=== PATIENT | female | born 1975 | race Caucasian/White ===

== ENCOUNTER 2019-05-12 18:20 | Inpatient (IN) ==
[2019-05-12] MEDS ORDERED: Ondansetron 4 MG/2 ML VIAL IVP ONE (19:22)
[2019-05-12] MEDS ORDERED: *HR* FentaNYL (PF) 100 MCG/2 ML VIAL IVP ONE (19:22)
[2019-05-12 19:31] LABS: Basophils % 0.3 %; Eosinophils % 0.1 %; Hematocrit 38.6 % (35.3-44.9); Immature Granulocytes % 0.4 % (0-4); Lymphocytes # 0.8 K/mcL (0.6-4.6); Lymphocytes % 5.9 %; Mean Corpuscular HGB Conc 33.7 g/dL (31.6-35.5); Mean Corpuscular Hemoglobin 30.6 pg (28.0-33.3); Mean Corpuscular Volume 90.8 fL (83.0-100.0); Mean Platelet Volume 8.7 fL (9.4-12.4); Monocytes # 0.5 K/mcL (0.0-1.3); Monocytes % 3.9 %; Platelet Count 259 K/mcL (140-400); Red Blood Count 4.25 M/mcL (3.82-4.97); Red Cell Distribution Width 12.5 % (11.5-14.5); Segmented Neutrophils % 89.4 %; White Blood Count 13.4 K/mcL (4.3-11.1)
[2019-05-12 19:48] LABS: Bilirubin,Urine Negative (Negative); Blood,Urine Negative (Negative); Color,Urine Yellow (Yellow); Glucose,Urine (UA) Normal (Normal); Ketones,Urine 80 mg/dL (Negative); Leukocyte Esterase,Urine Negative (Negative); Nitrite,Urine Negative (Negative); PH,Urine 8.5 pH Units (5.0-8.0); Protein,Urine Trace mg/dL (Neg-Trace); Specific Gravity,Urine 1.024 (1.010-1.025); Urobilinogen,Urine Normal (Normal)
[2019-05-12 19:51] LABS: Bacteria,Urine None Seen per hpf (None-Few); Hyaline Casts,Urine None Seen per lpf (None-Few); Squamous Epithelial Cell,Urine Many per lpf (None-Few)
[2019-05-12 19:52] LABS: Clarity,Urine Hazy (Clear)
[2019-05-12 19:54] LABS: Alanine Aminotransferase 14 Units/L (7-52); Albumin 4.1 g/dL (3.5-5.7); Albumin/Globulin Ratio 1.4 (1.1-2.2); Alkaline Phosphatase 57 Units/L (34-104); Aspartate Amino Transferase 13 Units/L (13-39); BUN/Creatinine Ratio 14 (6-26); Bilirubin,Direct 0.1 mg/dL (0.0-0.2); Bilirubin,Indirect 0.6 mg/dL (0.0-1.2); Bilirubin,Total 0.7 mg/dL (0.3-1.0); Blood Urea Nitrogen 12 mg/dL (6-20); Calcium 9.4 mg/dL (8.6-10.3); Carbon Dioxide 23 mEq/L (23-29); Chloride 104 mEq/L (98-107); Globulin 2.9 g/dL (2.4-3.5); Glucose 127 mg/dL (70-105); Lipase 123 Units/L (11-82); Osmolality,Calculated 285 (280-300); Potassium 3.5 mEq/L (3.5-5.1); Sodium 137 mEq/L (136-145); eGFR For African Americans > 60 (> 60); eGFR For Non-African Americans > 60 (> 60)
--- NOTE | 2019-05-12 21:09 | Emergency Department Note ---
Disposition Clinical Impression: Pancreatitis Qualifiers: Chronicity: acute Pancreatitis type: unspecified pancreatitis type Acute pancreatitis complication: no infection or necrosis Qualified Code(s): K85.90 - Acute pancreatitis without necrosis or infection, unspecified Disposition: Admitted As Inpatient Condition: Good Referrals: Emiliana Carmona [employer] OPERATOR [Primary Care Provider] - Forms: ED Satisfaction Letter, Work/School Release Time of Disposition: 22:19 General Adult HPI - General Chief complaint: ED Abdominal Pain Stated complaint: abd pain Time Seen by Provider: 05/12/19 18:26 Source: patient Limitations: no limitations Nursing Notes Reviewed: Yes Vital Signs Reviewed: Yes - History of Present Illness HPI Narrative: Female patient with a history of cholecystectomy and uterine fibroids presenting to the emergency department with a three-day history of epigastric pain that is been getting significantly worse. Also nausea and vomiting. She denies any hematemesis or trouble stooling. She denies any melena or hematochezia. She denies any fevers at home. No provoking or alleviating factors. Pain Scale: 8 - Related Data Home Medications Medication Instructions Recorded Confirmed Tamoxifen [Nolvadex] 20 mg PO DAILY 05/12/19 05/12/19 Allergies Allergy/AdvReac Type Severity Reaction Status Date / Time No Known Allergies Allergy Verified 04/25/19 08:25 All systems ED: reviewed and negative except as stated. Review of Systems: As Per HPI Constitutional: Denies: fever, chills Cardiovascular: Denies: chest pain, syncope Respiratory: Denies: cough, dyspnea Gastrointestinal: Reports: abdominal pain, nausea, vomiting. Denies: diarrhea, constipation, hematemesis, melena, hematochezia Genitourinary: Denies: urgency, dysuria, frequency Musculoskeletal: Denies: back pain, neck pain Integumentary: Denies: rash Neurological: Denies: headache, weakness Past Medical History - Past Medical History Attestation: Yes The following information was validated with the patient. Source: patient Medical history: Reports: cancer Psychiatric history: Reports: no psych history - Social History Smoking Status: Never smoker Smokeless Tobacco Status: No Alcohol use: Reports: none Drug use: Reports: none Physical Exam - General Limitations: no limitations General appearance: alert, in distress (Appears in pain ) - Head Head exam: atraumatic, normocephalic, normal inspection - Eye Eye exam: Present: normal appearance, PERRL, EOMI - ENT ENT exam: normal exam, normal oropharynx, mucous membranes moist - Neck Neck exam: Present: normal inspection, full ROM, trachea midline - Chest Chest inspection: Present: normal inspection, symmetric chest wall rise - Respiratory Respiratory exam: Present: normal lung sounds bilaterally. Absent: respiratory distress, accessory muscle use - Cardiovascular Cardiovascular exam: Present: regular rate, normal rhythm, normal heart sounds - Abdominal Exam Abdominal exam: Present: soft, tenderness (Epigastric region), guarding (Epigastric area). Absent: distention, rebound - Extremities Exam Extremities exam: Present: normal inspection, full ROM, normal capillary refill. Absent: tenderness, pedal edema, calf tenderness - Back Exam Back exam: Present: normal inspection, full ROM. Absent: tenderness - Neurological Exam Neurological exam: Present: alert, oriented X3 - Psychiatric Psychiatric exam: Present: normal affect, normal mood - Skin Skin exam: Present: warm, dry, intact, normal color. Absent: rash, cyanosis, diaphoresis Course Course Narrative: Patient uncomfortable in bed. Does have some epigastric tenderness. Nausea and vomiting. Holding an emesis bag. Stable vitals. We will provide patient with pain medication and anti-medics and get a CT of patient's abdomen secondary to her tenderness. She does have a history of uterine fibroids as well as a cholecystectomy. Does have some mild right lower quadrant tenderness however the most of her tenderness is over the epigastric region. - Reevaluation(s) Reevaluation #1: Patient with pancreatitis. We will provide patient with more pain medication an d she is still in pain. She does have a mildly elevated lipase however she was noted on the CT. 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 No history of pancreatitis before for her. No leukocytosis. Patient otherwise appears well just uncomfortable. Abdomen is soft nondistended and not rigid or scaphoid. No organomegaly noted. No swelling to extremities. - Consultations Consultation #1: Dr Hernandez accepted Pt in stable condition. Time: 22:19 Vital Signs Temperature 97.7 F 05/12/19 18:21 Pulse Rate 86 05/12/19 18:21 Respiratory Rate 16 05/12/19 18:21 Blood Pressure 134/85 05/12/19 18:21 O2 Sat by Pulse Oximetry 98 05/12/19 18:21 Temperature 97.7 F 05/12/19 18:41 Pulse Rate 72 05/12/19 21:23 Respiratory Rate 14 05/12/19 21:23 Blood Pressure 111/76 05/12/19 21:23 O2 Sat by Pulse Oximetry 100 05/12/19 21:23 Oxygen Delivery Oxygen Delivery Room Air Medical Decision Making - Medical Records Medical records reviewed: Yes I reviewed the patient's medical records. - Lab Data Lab results reviewed: Yes I reviewed the patient's lab results. Result diagrams: 05/12/19 19:18 05/12/19 19:18 Lab Results 05/12/19 05/12/19 05/12/19 Range/Units 19:18 19:18 19:18 WBC 13.4 H (4.3-11.1) K/mcL RBC 4.25 (3.82-4.97) M/mcL Hgb 13.0 (11.5-15.4) g/dL Hct 38.6 (35.3-44.9) % MCV 90.8 (83.0-100.0) fL MCH 30.6 (28.0-33.3) pg MCHC 33.7 (31.6-35.5) g/dL RDW 12.5 (11.5-14.5) % Plt Count 259 (140-400) K/mcL MPV 8.7 L (9.4-12.4) fL Immature Gran % 0.4 (0-4) % Seg Neutrophils % 89.4 % Lymphocytes % 5.9 % Monocytes % 3.9 % Eosinophils % 0.1 % Basophils % 0.3 % Neutrophils # 12.0 H (1.6-8.9) K/mcL Lymphocytes # 0.8 (0.6-4.6) K/mcL Monocytes # 0.5 (0.0-1.3) K/mcL Eosinophils # 0.0 (0.0-0.6) K/mcL Basophils # 0.0 (0.0-0.2) K/mcL Sodium 137 (136-145) mEq/L Potassium 3.5 (3.5-5.1) mEq/L Chloride 104 (98-107) mEq/L Carbon Dioxide 23 (23-29) mEq/L BUN 12 (6-20) mg/dL Creatinine 0.87 (0.60-1.20) mg/dL Est GFR ( Amer) > 60 (> 60) Est GFR (Non-Af Amer) > 60 (> 60) BUN/Creatinine Ratio 14 (6-26) Glucose 127 H (70-105) mg/dL Calculated Osmolality 285 (280-300) Lactic Acid 1.7 (0.5-2.2) mmol/L Calcium 9.4 (8.6-10.3) mg/dL Total Bilirubin 0.7 (0.3-1.0) mg/dL Direct Bilirubin 0.1 (0.0-0.2) mg/dL Indirect Bilirubin 0.6 (0.0-1.2) mg/dL AST 13 (13-39) Units/L ALT 14 (7-52) Units/L Alkaline Phosphatase 57 (34-104) Units/L Serum Total Protein 7.0 (6.4-8.9) g/dL Albumin 4.1 (3.5-5.7) g/dL Globulin 2.9 (2.4-3.5) g/dL Albumin/Globulin Ratio 1.4 (1.1-2.2) Lipase 123 H (11-82) Units/L Urine Color (Yellow) Urine Clarity (Clear) Urine pH (5.0-8.0) pH Units Ur Specific [place] (1.010-1.025) Urine Protein (Neg-Trace) mg/dL Urine Glucose (UA) (Normal) mg/dL Urine Ketones (Negative) mg/dL Urine Blood (Negative) Urine Nitrite (Negative) Urine Bilirubin (Negative) Urine Urobilinogen (Normal) mg/dL Ur Leukocyte Esterase (Negative) Urine Microscopic RBC (0-3) per hpf Ur Squamous Epith Cells (None-Few) per lpf Urine Bacteria (None-Few) per hpf Hyaline Casts (None-Few) per lpf Ur Culture Indicated? (NO) 05/12/19 Range/Units 19:38 WBC (4.3-11.1) K/mcL RBC (3.82-4.97) M/mcL Hgb (11.5-15.4) g/dL Hct (35.3-44.9) % MCV (83.0-100.0) fL MCH (28.0-33.3) pg MCHC (31.6-35.5) g/dL RDW (11.5-14.5) % Plt Count (140-400) K/mcL MPV (9.4-12.4) fL Immature Gran % (0-4) % Seg Neutrophils % % Lymphocytes % % Monocytes % % Eosinophils % % Basophils % % Neutrophils # (1.6-8.9) K/mcL Lymphocytes # (0.6-4.6) K/mcL Monocytes # (0.0-1.3) K/mcL Eosinophils # (0.0-0.6) K/mcL Basophils # (0.0-0.2) K/mcL Sodium (136-145) mEq/L Potassium (3.5-5.1) mEq/L Chloride (98-107) mEq/L Carbon Dioxide (23-29) mEq/L BUN (6-20) mg/dL Creatinine (0.60-1.20) mg/dL Est GFR ( Amer) (> 60) Est GFR (Non-Af Amer) (> 60) BUN/Creatinine Ratio (6-26) Glucose (70-105) mg/dL Calculated Osmolality (280-300) Lactic Acid (0.5-2.2) mmol/L Calcium (8.6-10.3) mg/dL Total Bilirubin (0.3-1.0) mg/dL Direct Bilirubin (0.0-0.2) mg/dL Indirect Bilirubin (0.0-1.2) mg/dL AST (13-39) Units/L ALT (7-52) Units/L Alkaline Phosphatase (34-104) Units/L Serum Total Protein (6.4-8.9) g/dL Albumin (3.5-5.7) g/dL Globulin (2.4-3.5) g/dL Albumin/Globulin Ratio (1.1-2.2) Lipase (11-82) Units/L Urine Color Yellow (Yellow) Urine Clarity Hazy A (Clear) Urine pH 8.5 H (5.0-8.0) pH Units Ur Specific [place] 1.024 (1.010-1.025) Urine Protein Trace (Neg-Trace) mg/dL Urine Glucose (UA) Normal (Normal) mg/dL Urine Ketones 80 H (Negative) mg/dL Urine Blood Negative (Negative) Urine Nitrite Negative (Negative) Urine Bilirubin Negative (Negative) Urine Urobilinogen Normal (Normal) mg/dL Ur Leukocyte Esterase Negative (Negative) Urine Microscopic RBC 5-15 H (0-3) per hpf Ur Squamous Epith Cells Many H (None-Few) per lpf Urine Bacteria None Seen (None-Few) per hpf Hyaline Casts None Seen (None-Few) per lpf Ur Culture Indicated? NO (NO) - Radiology Data Radiology results reviewed: Yes I reviewed the patient's radiology results. Abdomen/Pelvis CT 05/12/19 19:21 IMPRESSION: 1. CT findings suggestive of acute pancreatitis. Correlate with lipase. Area of low-density within the pancreatic head may represent focal edema. Evaluation is limited without IV contrast. Underlying mass is considered less likely. No secondary signs of malignancy are identified including atrophy or ductal dilatation. Contrast-enhanced pancreatic protocol CT is recommended after the patient's acute symptoms have resolved for better assessment. 2. Status post cholecystectomy. No intra or extrahepatic biliary dilatation. No radiodense choledocholithiasis. 3. Moderate diverticulosis. D/ / Diana Vega MD / Diana Vega MD Interpreting Provider: Diana Vega MD - EKG Data EKG #1 EKG attestation: Yes I reviewed and interpreted this EKG. EKG results narrative: Normal sinus rhythm at a rate 77. IN interval is 193. Castration is 88. QT is 384. QTC is 435. No signs of acute ischemia. Good R-wave progression. No si gns of WPW or Brugada.
[2019-05-12] MEDS ORDERED: 0.9 % Sodium Chloride 1,000 ML IVC STA (21:10)
--- NOTE | 2019-05-12 21:16 | Emergency Department Note ---
Disposition Clinical Impression: Pancreatitis Qualifiers: Chronicity: acute Pancreatitis type: unspecified pancreatitis type Acute pancreatitis complication: no infection or necrosis Qualified Code(s): K85.90 - Acute pancreatitis without necrosis or infection, unspecified Disposition: Admitted As Inpatient Condition: Good Forms: ED Satisfaction Letter, Work/School Release Time of Disposition: 21:17 General Adult HPI - General Chief complaint: ED Abdominal Pain Stated complaint: abd pain Time Seen by Provider: 05/12/19 18:26 Source: patient Limitations: no limitations - History of Present Illness Pain Scale: 8 - Related Data Allergies Allergy/AdvReac Type Severity Reaction Status Date / Time No Known Allergies Allergy Verified 04/25/19 08:25 Constitutional: Denies: fever, chills Cardiovascular: Denies: chest pain, syncope Respiratory: Denies: cough, dyspnea Gastrointestinal: Reports: abdominal pain, nausea, vomiting. Denies: diarrhea, constipation, hematemesis, melena, hematochezia Genitourinary: Denies: urgency, dysuria, frequency Musculoskeletal: Denies: back pain, neck pain Integumentary: Denies: rash Neurological: Denies: headache, weakness Past Medical History - Past Medical History Medical history: Reports: cancer Psychiatric history: Reports: no psych history - Social History Smoking Status: Never smoker Smokeless Tobacco Status: No Alcohol use: Reports: none Drug use: Reports: none Physical Exam - General Limitations: no limitations General appearance: alert Course Vital Signs Temperature 97.7 F 05/12/19 18:21 Pulse Rate 86 05/12/19 18:21 Respiratory Rate 16 05/12/19 18:21 Blood Pressure 134/85 05/12/19 18:21 O2 Sat by Pulse Oximetry 98 05/12/19 18:21 Temperature 97.7 F 05/12/19 18:41 Pulse Rate 84 05/12/19 18:46 Respiratory Rate 18 05/12/19 18:46 Blood Pressure 129/93 05/12/19 18:46 O2 Sat by Pulse Oximetry 100 05/12/19 18:46 Oxygen Delivery Oxygen Delivery Room Air Medical Decision Making - Lab Data Result diagrams: 05/12/19 19:18 05/12/19 19:18 Lab Results 05/12/19 05/12/19 05/12/19 Range/Units 19:18 19:18 19:18 WBC 13.4 H (4.3-11.1) K/mcL RBC 4.25 (3.82-4.97) M/mcL Hgb 13.0 (11.5-15.4) g/dL Hct 38.6 (35.3-44.9) % MCV 90.8 (83.0-100.0) fL MCH 30.6 (28.0-33.3) pg MCHC 33.7 (31.6-35.5) g/dL RDW 12.5 (11.5-14.5) % Plt Count 259 (140-400) K/mcL MPV 8.7 L (9.4-12.4) fL Immature Gran % 0.4 (0-4) % Seg Neutrophils % 89.4 % Lymphocytes % 5.9 % Monocytes % 3.9 % Eosinophils % 0.1 % Basophils % 0.3 % Neutrophils # 12.0 H (1.6-8.9) K/mcL Lymphocytes # 0.8 (0.6-4.6) K/mcL Monocytes # 0.5 (0.0-1.3) K/mcL Eosinophils # 0.0 (0.0-0.6) K/mcL Basophils # 0.0 (0.0-0.2) K/mcL Sodium 137 (136-145) mEq/L Potassium 3.5 (3.5-5.1) mEq/L Chloride 104 (98-107) mEq/L Carbon Dioxide 23 (23-29) mEq/L BUN 12 (6-20) mg/dL Creatinine 0.87 (0.60-1.20) mg/dL Est GFR ( Amer) > 60 (> 60) Est GFR (Non-Af Amer) > 60 (> 60) BUN/Creatinine Ratio 14 (6-26) Glucose 127 H (70-105) mg/dL Calculated Osmolality 285 (280-300) Lactic Acid 1.7 (0.5-2.2) mmol/L Calcium 9.4 (8.6-10.3) mg/dL Total Bilirubin 0.7 (0.3-1.0) mg/dL Direct Bilirubin 0.1 (0.0-0.2) mg/dL Indirect Bilirubin 0.6 (0.0-1.2) mg/dL AST 13 (13-39) Units/L ALT 14 (7-52) Units/L Alkaline Phosphatase 57 (34-104) Units/L Serum Total Protein 7.0 (6.4-8.9) g/dL Albumin 4.1 (3.5-5.7) g/dL Globulin 2.9 (2.4-3.5) g/dL Albumin/Globulin Ratio 1.4 (1.1-2.2) Lipase 123 H (11-82) Units/L Urine Color (Yellow) Urine Clarity (Clear) Urine pH (5.0-8.0) pH Units Ur Specific [place] (1.010-1.025) Urine Protein (Neg-Trace) mg/dL Urine Glucose (UA) (Normal) mg/dL Urine Ketones (Negative) mg/dL Urine Blood (Negative) Urine Nitrite (Negative) Urine Bilirubin (Negative) Urine Urobilinogen (Normal) mg/dL Ur Leukocyte Esterase (Negative) Urine Microscopic RBC (0-3) per hpf Ur Squamous Epith Cells (None-Few) per lpf Urine Bacteria (None-Few) per hpf Hyaline Casts (None-Few) per lpf Ur Culture Indicated? (NO) 05/12/19 Range/Units 19:38 WBC (4.3-11.1) K/mcL RBC (3.82-4.97) M/mcL Hgb (11.5-15.4) g/dL Hct (35.3-44.9) % MCV (83.0-100.0) fL MCH (28.0-33.3) pg MCHC (31.6-35.5) g/dL RDW (11.5-14.5) % Plt Count (140-400) K/mcL MPV (9.4-12.4) fL Immature Gran % (0-4) % Seg Neutrophils % % Lymphocytes % % Monocytes % % Eosinophils % % Basophils % % Neutrophils # (1.6-8.9) K/mcL Lymphocytes # (0.6-4.6) K/mcL Monocytes # (0.0-1.3) K/mcL Eosinophils # (0.0-0.6) K/mcL Basophils # (0.0-0.2) K/mcL Sodium (136-145) mEq/L Potassium (3.5-5.1) mEq/L Chloride (98-107) mEq/L Carbon Dioxide (23-29) mEq/L BUN (6-20) mg/dL Creatinine (0.60-1.20) mg/dL Est GFR ( Amer) (> 60) Est GFR (Non-Af Amer) (> 60) BUN/Creatinine Ratio (6-26) Glucose (70-105) mg/dL Calculated Osmolality (280-300) Lactic Acid (0.5-2.2) mmol/L Calcium (8.6-10.3) mg/dL Total Bilirubin (0.3-1.0) mg/dL Direct Bilirubin (0.0-0.2) mg/dL Indirect Bilirubin (0.0-1.2) mg/dL AST (13-39) Units/L ALT (7-52) Units/L Alkaline Phosphatase (34-104) Units/L Serum Total Protein (6.4-8.9) g/dL Albumin (3.5-5.7) g/dL Globulin (2.4-3.5) g/dL Albumin/Globulin Ratio (1.1-2.2) Lipase (11-82) Units/L Urine Color Yellow (Yellow) Urine Clarity Hazy A (Clear) Urine pH 8.5 H (5.0-8.0) pH Units Ur Specific [place] 1.024 (1.010-1.025) Urine Protein Trace (Neg-Trace) mg/dL Urine Glucose (UA) Normal (Normal) mg/dL Urine Ketones 80 H (Negative) mg/dL Urine Blood Negative (Negative) Urine Nitrite Negative (Negative) Urine Bilirubin Negative (Negative) Urine Urobilinogen Normal (Normal) mg/dL Ur Leukocyte Esterase Negative (Negative) Urine Microscopic RBC 5-15 H (0-3) per hpf Ur Squamous Epith Cells Many H (None-Few) per lpf Urine Bacteria None Seen (None-Few) per hpf Hyaline Casts None Seen (None-Few) per lpf Ur Culture Indicated? NO (NO) Attestation Statement - Attestation Attestation: I reviewed the residents documentation and agree with the residents assessment and plan of care. I have personally had face to face time with the patient. (Brief History, Brief Exam, and MDM) I personally supervised and was present for the benoit/critical portions of the following procedures completed by the resident: EKG 43 year old female presents to the ED with complaints of epigastric pain and states that this feels similar to when she had her galbladder attacks but not longer has a galbladder and it appears that she had pancreaitits with an elevated lipase and CT confirming pancreatitis. WE will continue with pain management and admit to medicine.
[2019-05-12] MEDS ORDERED: *HR* Promethazine 25 MG/ML VIAL IVP ONE (21:31)
[2019-05-12] MEDS ORDERED: *HR* HYDROmorphone (PF) 1 MG/ML SYRINGE IVP ONE (21:37)
[2019-05-13] MEDS ORDERED: *HR* FentaNYL (PF) 100 MCG/2 ML VIAL IVP PRN (01:09)
[2019-05-13] MEDS ORDERED: Naloxone 0.4 MG/ML INJ IVP PRN (01:10)
[2019-05-13] MEDS ORDERED: Gadolinium Contrast Agent (WT Based) IV PRN (01:10)
[2019-05-13] MEDS ORDERED: Ondansetron 4 MG/2 ML VIAL IVP PRN (01:10)
[2019-05-13] MEDS ORDERED: 0.9 % Sodium Chloride w KCl 20 MEQ/1,000 ML MLS IVC SCH (01:15)
--- NOTE | 2019-05-13 01:34 | Internal Med History&Physical ---
Date of Encounter: 05/12/19 Time of Encounter: 21:50 Internal Medicine - H&P: HPI Chief complaint: abdominal pain; N/V Admitted From: Emergency Dept Plans for Post Hospital Care: Home History of present illness: Ms. Bach is a 43 year old female who presents to the ER with complaints of protracted nausea, vomiting, and upper abdominal pain. Symptoms first started about 3 days ago and have progressively worsened. She has been unable to eat or drink much of anything over the last 24 hours. Because of worsening symptoms, she came to ER. Workup in ER revealed findings compatible with pancreatitis. She was therefore admitted to hospitalist service. Upon my assessment of the patient, patient appears to be ill but nontoxic. She and her confirmed the above history. She has a history of cholecystectomy several years ago. She does not drink alcohol. She does not have any history of hyperlipidemia and/or hypertriglyceridemia. She is not diabetic. She takes minimal medications and none that are known to possibly cause pancreatitis. She has a history of breast cancer treated with mastectomy and chemotherapy several years ago. She does not recall her chemotherapy agents and/or possible side effects/complications. Past Med Surg Social Fam HX - Past Medical History Attestation: Yes The following information was validated with the patient. Source: patient, old records reviewed, obtained from family Medical history: cancer (breast) Psychiatric history: no psych history - Past Surgical History Surgical History: cancer surgery (breast), cholecystectomy Additional surgical history: L mastectomy, tubal ligation - Social History Smoking Status: Former smoker Smokeless Tobacco Status: No Alcohol use: none Drug use: none Current living situation: Home, With Family Activity Level: Independent ambulation Recent Out of Country Travel Within the Last 8 Weeks: No - Family History Mother Living Status: Still Living Hx Family GI Disorders: No Father Living Status: Still Living Hx Family GI Disorders: No Internal Medicine - H&P: Meds Tamoxifen [Nolvadex] 20 mg PO DAILY 05/12/19 [History] Allergy/AdvReac Type Severity Reaction Status Date / Time phenazopyridine Allergy Shakiness Verified 05/12/19 23:24 [From Pyridium] sulfamethoxazole Allergy Shakiness Verified 05/12/19 23:23 [From Bactrim] trimethoprim [From Bactrim] Allergy Shakiness Verified 05/12/19 23:23 - Constitutional Constitutional: no chills, no fever(s), no night sweats - EENT Eyes: no blurry vision, no change in vision Ears: no ear pain, no tinnitus Nose, mouth and throat: no nasal congestion, no sinus pressure, no sore throat - Cardiovascular Cardiovascular ROS IM: no chest pain, no dyspnea, no dyspnea on exertion - Respiratory Respiratory: no cough, no dyspnea, no chest congestion - Gastrointestinal Gastrointestinal: abdominal pain, nausea, vomiting, no coffee ground emesis, no diarrhea, no heartburn, no hematemesis, no hematochezia, no melena - Genitourinary Genitourinary: no dysuria, no flank pain, no hematuria - Musculoskeletal Musculoskeletal ROS IM: no arthralgias, no back pain, no limited range of motion - Integumentary Integumentary IM: no rash, no jaundice - Neurological Neurological ROS: no dizziness, no focal weakness, no frequent falls, no headache(s) - Psychiatric Psychiatric: no anxiety, no depression - Endocrine Endocrine IM: no cold intolerance, no heat intolerance, no polydipsia, no polyphagia, no polyuria - Allergic/Immunologic Allergic/Immunologic: GI upset with certain foods, no wheezing - Constitutional Vitals: Temp Pulse Resp BP Pulse Ox 98.4 F 67 16 126/83 98 05/12/19 23:12 05/12/19 23:12 05/12/19 23:12 05/12/19 23:12 05/12/19 23:37 General appearance: Present: cooperative, mild distress, A&O X 3, pleasant, answers questions appropriately Exam: ill appearing; non-toxic - Head Head exam: Present: atraumatic, normal inspection - Eye Eye exam: Present: EOMI, PERRL. Absent: scleral icterus Pupils: Present: normal accommodation - ENT ENT exam: Present: mucous membranes dry, normal exam, normal oropharynx - Neck Neck exam general surgery: Present: full ROM, supple, trachea midline. Absent: lymphadenopathy, tenderness, nuchal rigidity, thyromegaly - Respiratory Respiratory exam: Present: CTAB. Absent: chest wall tenderness, rales, rhonchi, wheezes - Cardiovascular Cardiovascular exam: Present: RRR, +S1, +S2. Absent: diastolic murmur, systolic murmur - GI/Abdominal GI/Abdominal exam: Present: tenderness (epigastric), no peritoneal signs. Absent: guarding, hepatomegaly, mass, rebound, splenomegaly - Extremities Exam Extremities exam: Present: full ROM, normal capillary refill, warm, radial pulses palpable and symmetrical. Absent: calf tenderness, joint swelling, pedal edema, tenderness - Back Exam Back exam: Present: normal inspection. Absent: CVA tenderness (L), CVA tenderness (R) - Neurological Exam Neurological exam: Present: alert, CN II-XII intact, oriented X3, no focal deficits, strengths equal and symetr throughout - Psychiatric Psychiatric exam: Present: normal affect, normal mood - Skin Skin exam: Present: dry, intact, warm Internal Med - H&P Results - Labs CBC & Chem 7: 05/12/19 19:18 05/12/19 19:18 Labs: Short CBC 05/12/19 Range/Units 19:18 WBC 13.4 H (4.3-11.1) K/mcL Hgb 13.0 (11.5-15.4) g/dL Hct 38.6 (35.3-44.9) % Plt Count 259 (140-400) K/mcL Neutrophils # 12.0 H (1.6-8.9) K/mcL BMP 05/12/19 19:18 Sodium 137 Potassium 3.5 Chloride 104 Carbon Dioxide 23 BUN 12 Creatinine 0.87 Glucose 127 H Calcium 9.4 Liver Function 05/12/19 Range/Units 19:18 Total Bilirubin 0.7 (0.3-1.0) mg/dL Direct Bilirubin 0.1 (0.0-0.2) mg/dL AST 13 (13-39) Units/L ALT 14 (7-52) Units/L Alkaline Phosphatase 57 (34-104) Units/L Albumin 4.1 (3.5-5.7) g/dL Urine 05/12/19 Range/Units 19:38 Urine Color Yellow (Yellow) Urine Clarity Hazy A (Clear) Urine pH 8.5 H (5.0-8.0) pH Units Ur Specific [place] 1.024 (1.010-1.025) Urine Protein Trace (Neg-Trace) mg/dL Urine Glucose (UA) Normal (Normal) mg/dL - Impressions ITS Impressions Abdomen/Pelvis CT 05/12/19 19:21 IMPRESSION: 1. CT findings suggestive of acute pancreatitis. Correlate with lipase. Area of low-density within the pancreatic head may represent focal edema. Evaluation is limited without IV contrast. Underlying mass is considered less likely. No secondary signs of malignancy are identified including atrophy or ductal dilatation. Contrast-enhanced pancreatic protocol CT is recommended after the patient's acute symptoms have resolved for better assessment. 2. Status post cholecystectomy. No intra or extrahepatic biliary dilatation. No radiodense choledocholithiasis. 3. Moderate diverticulosis. D/ : / 05/12/2019 21:22:28 Diana Vega MD / isabel Interpreting Provider: Diana Vega MD - Diagnostic Studies CT scan - abdomen Status: image reviewed by me - Assessment and Plan (1) Pancreatitis Current Visit: Yes Status: Acute Assessment and plan: 1. Will keep NPO. 2. IVF, pain control, and anti-emetics ordered. 3. Will check fasting lipid profile, trend amylase, lipase. 4. Will order MRI pancreas/abdomen. 5. Consult GI as she may need ERCP pending finding on MRI. Qualifiers: Chronicity: acute Pancreatitis type: idiopathic Acute pancreatitis complication: no infection or necrosis Qualified Code(s): K85.00 - Idiopathic acute pancreatitis without necrosis or infection (2) Breast cancer Current Visit: Yes Status: Chronic Assessment and plan: 1. Continue Tamoxifen. 2. Outpatient follow up with oncology. Qualifiers: Breast location: unspecified site of breast Estrogen receptor status: u nspecified Patient sex: female Laterality: left Qualified Code(s): C50.912 - Malignant neoplasm of unspecified site of left female breast (3) DVT prophylaxis Current Visit: Yes Status: Acute Assessment and plan: 1. Heparin SQ.
[2019-05-13 03:54] LABS: Basophils % 0.3 %; Eosinophils % 0.1 %; Hematocrit 37.3 % (35.3-44.9); Immature Granulocytes % 0.4 % (0-4); Lymphocytes # 0.8 K/mcL (0.6-4.6); Lymphocytes % 5.8 %; Mean Corpuscular HGB Conc 32.2 g/dL (31.6-35.5); Mean Corpuscular Hemoglobin 29.7 pg (28.0-33.3); Mean Corpuscular Volume 92.3 fL (83.0-100.0); Mean Platelet Volume 9.1 fL (9.4-12.4); Monocytes # 0.8 K/mcL (0.0-1.3); Monocytes % 5.5 %; Neutrophils # 12.2 K/mcL (1.6-8.9); Platelet Count 233 K/mcL (140-400); Red Blood Count 4.04 M/mcL (3.82-4.97); Red Cell Distribution Width 12.4 % (11.5-14.5); Segmented Neutrophils % 87.9 %; White Blood Count 13.9 K/mcL (4.3-11.1)
[2019-05-13 04:02] LABS: Alanine Aminotransferase 12 Units/L (7-52); Albumin 3.8 g/dL (3.5-5.7); Albumin/Globulin Ratio 1.4 (1.1-2.2); Alkaline Phosphatase 53 Units/L (34-104); Aspartate Amino Transferase 11 Units/L (13-39); BUN/Creatinine Ratio 14 (6-26); Bilirubin,Total 0.6 mg/dL (0.3-1.0); Blood Urea Nitrogen 11 mg/dL (6-20); Calcium 8.5 mg/dL (8.6-10.3); Carbon Dioxide 23 mEq/L (23-29); Chloride 107 mEq/L (98-107); Chol/HDL Ratio 3.3 (0-4.9); Cholesterol 143 mg/dL (< 200); Globulin 2.7 g/dL (2.4-3.5); Glucose 117 mg/dL (70-105); HDL Cholesterol 43 mg/dL (40-59); INR 1.2; LDL Cholesterol,Calculated 81 mg/dL (0-99); Osmolality,Calculated 284 (280-300); Prothrombin Time 13.5 Seconds (9.4-12.1); Sodium 137 mEq/L (136-145); Total Protein 6.5 g/dL (6.4-8.9); Triglycerides 97 mg/dL (< 150); eGFR For African Americans > 60 (> 60); eGFR For Non-African Americans > 60 (> 60)
[2019-05-13 04:03] LABS: Albumin 3.9 g/dL (3.5-5.7); Albumin/Globulin Ratio 1.5 (1.1-2.2); Bilirubin,Direct 0.2 mg/dL (0.0-0.2); Bilirubin,Indirect 0.4 mg/dL (0.0-1.2); Bilirubin,Total 0.6 mg/dL (0.3-1.0); Globulin 2.6 g/dL (2.4-3.5); Total Protein 6.5 g/dL (6.4-8.9)
[2019-05-13 04:05] LABS: Activated Partial Thrombo Time 30.2 Seconds (26.0-36.0)
[2019-05-13] MEDS: Pantoprazole 40 MG VIAL IVP SCH ×2 (05:23→18:34)
[2019-05-13] MEDS: *HR* Heparin 5,000 UNIT/ML VIAL SQ SCH ×2 (05:23→18:34)
[2019-05-13] MEDS ORDERED: 0.9 % Sodium Chloride 1,000 ML IV SCH (09:15)
--- NOTE | 2019-05-13 11:05 | Gastroenterology Consult Note ---
<Airam Blank M - Last Filed: 05/13/19 11:08> Date of Encounter: 05/13/19 Time of Encounter: 10:40 - Assessment and plan (1) Pancreatitis Current Visit: Yes Status: Acute Assessment and plan: Keep NPO, continue IVF. Pt had MRI this morning results pending. Triglycerides normal, will check labs for autoimmune hepatitins. Will need pancreas protocol CT in 4-6 weeks to rule out pancreatic lesion and follow up with Dr Luis as an outpatient. Qualifiers: Chronicity: acute Pancreatitis type: idiopathic Acute pancreatitis complication: no infection or necrosis Qualified Code(s): K85.00 - Idiopathic acute pancreatitis without necrosis or infection - Time Spent With Patient Total time spent is greater than 50% in coordination of care (as documented) at patient's floor/unit and/or counseling patient: GI History of Present Illness - Data of Consult Patient: new to practice Consult date: 05/13/19 Requesting Physician: Max Bird - Consult Narrative Reason for consult: pancreatitis History of present illness: Ms. Bach is a 43 year old female who presents to the ER with complaints of protracted nausea, vomiting, and upper abdominal pain. Symptoms first started about 3 days ago and have progressively worsened. She has been unable to eat or drink much of anything over the last 24 hours. Because of worsening symptoms, she came to ER. She has a history of cholecystectomy several years ago. She does not drink alcohol. She does not have any history of hyperlipidemia and/or hypertriglyceridemia. She is not diabetic. She takes minimal medications and none that are known to possibly cause pancreatitis. She has a history of breast cancer treated with mastectomy and chemotherapy in 2017. CT findings suggestive of acute pancreatitis. Area of low-density within the pancreatic head may represent focal edema. Underlying mass is considered less likely. No secondary signs of malignancy are identified including atrophy or ductal dilatation. Contrast-enhanced pancreatic protocol CT is recommended after the patient's acute symptoms have resolved for better assessment. Status post cholecystectomy. No intra or extrahepatic biliary dilatation. No radiodense choledocholithiasis. Moderate diverticulosis. She denies any family history of pancreatic disease. Lipase was 123 on admission has decreased to 38. WBC mildly elevated at 13.9. Past Med Surg Social Fam HX - Past Medical History Medical history: cancer (breast) Additional medical history: breast ca Psychiatric history: no psych history - Past Surgical History Surgical History: cancer surgery (breast), cholecystectomy Additional surgical history: L mastectomy, tubal ligation - Social History Smoking Status: Former smoker Smokeless Tobacco Status: No Alcohol use: none Drug use: none - Family History Mother Living Status: Still Living Hx Family GI Disorders: No Father Living Status: Still Living Hx Family GI Disorders: No Review of Systems: GI: as per [facility]: denies fever, has some chills EYES: denies yellow discoloration ENT: denies pain with swallowing or difficulty swallowing CARDIO: denies chest pain, palpitations RESP: No Shortness of breath with exertion : denies change in color of urine NEURO: denies any weakness HEME: Denies any bruising MS: denies joint pain, joint swelling or back pain. DERM: denies rash or itching PSYCH: Denies history of anxiety or depression - Constitutional Vitals: Temp Pulse Resp BP Pulse Ox 98.5 F 76 15 120/83 99 05/13/19 07:10 05/13/19 07:10 05/13/19 07:10 05/13/19 07:10 05/13/19 07:10 Exam: CONSTITUTIONAL:alert, no acute distress.HEAD:normocephalic.EYES:no jaundice.NECK:no obvious swelling.HEART:regular rate and rhythm, no murmurs.LUNGS:bilateral good air entry.ABDOMEN:softly distended, tender, difficult to palpate for masses due to tenderness.RECTAL EXAM:Deferred.EXTREMITIES:no clubbing, cyanosis or edema.SKIN:no stigmata of chronic liver disease.NEUROLOGIC:no obvious focal defect. Results - Labs CBC & Chem 7: 05/13/19 03:15 05/13/19 03:15 Labs: Last Result 05/13/19 03:15 Calcium 8.5 L Triglycerides 97 Entire Visit 05/13/19 05/13/19 05/13/19 03:15 03:15 03:15 Hgb 12.0 Hct 37.3 PT 13.5 H Total Bilirubin 0.6 AST 11 L ALT 12 Amylase Lipase 05/13/19 03:15 Hgb Hct PT Total Bilirubin 0.6 AST 11 L ALT 12 Amylase 44 Lipase 58 - ABG ABG results: PT/INR, D-dimer PT 13.5 Seconds (9.4-12.1) H 05/13/19 03:15 - Impressions Impressions Abdomen/Pelvis CT 05/12/19 19:21 IMPRESSION: 1. CT findings suggestive of acute pancreatitis. Correlate with lipase. Area of low-density within the pancreatic head may represent focal edema. Evaluation is limited without IV contrast. Underlying mass is considered less likely. No secondary signs of malignancy are identified including atrophy or ductal dilatation. Contrast-enhanced pancreatic protocol CT is recommended after the patient's acute symptoms have resolved for better assessment. 2. Status post cholecystectomy. No intra or extrahepatic biliary dilatation. No radiodense choledocholithiasis. 3. Moderate diverticulosis. D/ / 05/12/2019 21:22:28 Diana Vega MD / isabel Interpreting Provider: Diana Vega MD Abdomen MRI 05/13/19 08:42 IMPRESSION: 1. Acute pancreatitis. No fluid collection, pancreatic necrosis, or venous thrombosis. 2. No biliary ductal dilatation or choledocholithiasis. 3. Bibasilar airspace disease with trace pleural effusions. D/ / Srikanth Boyce MD / Srikanth Boyce MD Interpreting Provider: Srikanth Boyce MD Consult Discharge Plan - Plan Referrals: Emiliana Carmona, SENIOR UX DEVELOPER [Primary Care Provider] - <Иван Luis - Last Filed: 05/13/19 17:36> Date of Encounter: 05/13/19 Time of Encounter: 13:30 - Time Spent With Patient Total time spent is greater than 50% in coordination of care (as documented) at patient's floor/unit and/or counseling patient: GI History of Present Illness - Data of Consult Requesting Physician: Max Bird - Consult Narrative History of present illness: Ms. Bach is a 43 year old female - Constitutional Vitals: Temp Pulse Resp BP Pulse Ox 99.4 F 90 14 112/77 97 05/13/19 15:51 05/13/19 15:51 05/13/19 15:51 05/13/19 15:51 05/13/19 15:51 Results - Labs CBC & Chem 7: 05/13/19 03:15 05/13/19 03:15 - ABG ABG results: PT/INR, D-dimer PT 13.5 Seconds (9.4-12.1) H 05/13/19 03:15 - Impressions Impressions Abdomen/Pelvis CT 05/12/19 19:21 IMPRESSION: 1. CT findings suggestive of acute pancreatitis. Correlate with lipase. Area of low-density within the pancreatic head may represent focal edema. Evaluation is limited without IV contrast. Underlying mass is considered less likely. No secondary signs of malignancy are identified including atrophy or ductal dilatation. Contrast-enhanced pancreatic protocol CT is recommended after the patient's acute symptoms have resolved for better assessment. 2. Status post cholecystectomy. No intra or extrahepatic biliary dilatation. No radiodense choledocholithiasis. 3. Moderate diverticulosis. D/ / 05/12/2019 21:22:28 Diana Vega MD / isabel Interpreting Provider: Diana Vega MD Abdomen MRI 05/13/19 08:42 IMPRESSION: 1. Acute pancreatitis. No fluid collection, pancreatic necrosis, or venous thrombosis. 2. No biliary ductal dilatation or choledocholithiasis. 3. Bibasilar airspace disease with trace pleural effusions. D/ / Srikanth Boyce MD / Srikanth Boyce MD Interpreting Provider: Srikanth Boyce MD - Attending Attestation I have personally performed a face to face evaluation on this patient. I have reviewed and agree with the care plan. History and Exam by me shows: Patient seen. The patient abdominal pain is better than before. On examination: Abdomen is soft mild tenderness in the upper abdomen.: Assessment: Patient with acute pancreatitis unclear pathology already out no drinking triglycerides and calcium is normal. Questionable medication induced. Recommendation: IV fluid pain management will need a repeat CT of the pancreas with IV contrast in 4 weeks.
--- NOTE | 2019-05-13 14:22 | Internal Med Progress Note ---
Hospitalist Progress Note - Encounter Date of Encounter: 05/13/19 Time of Encounter: 08:30 - Subjective Interval History: Seen and examined. Afebrile. Pt reports feeling somewhat improved. Pain is currently under control. Denies fever, chills, [place], chest pain, shortness of breath, constipation, changes in urination. - Exam Vitals: Temp Pulse Resp BP Pulse Ox 99.4 F 88 14 112/77 95 05/13/19 12:08 05/13/19 12:08 05/13/19 12:08 05/13/19 12:08 05/13/19 12:08 Exam: Gen: Vitals noted. No acute distress. Eyes: anicteric sclerae, moist conjunctivae, Pupils equal, round, and reactive to light HENT: Atraumatic, oropharynx clear with moist mucous membranes and no mucosal ulcerations Neck: Trachea midline, supple, no thyromegaly or lymphadenopathy Cardiac: RRR, no murmur, +S1/S2 Pulmonary: CTA bilaterally, no wheezes, rales or rhonchi, equal chest expansion Abdomen: soft, diffuse tenderness to light palpation, no guarding. No masses or hepatosplenomegaly MSK: ROM intact, no joint swelling noted Extremities: no BLE edema, non-tender calf, no cyanosis or clubbing Skin: Normal temperature, turgor and texture; no rash, ulcers or subcutaneous nodules Neuro: moves all extremities, no focal deficits. Psych: Appropriate mood and behavior. A&Ox3 - Assessment and Plan (1) Pancreatitis Current Visit: Yes Status: Acute Assessment and Plan: Presentation of abdominal pain with nausea, and vomiting - Began 3 days before admission - Cholecystectomy several years ago - No family history of hyperlipidemia/hypertriglyceridemia - Does not drink alcohol - Leukocytosis of 13.9 on admission - Lipase 123 on admission, then 53 - CT ab/pel: Acute pancreatitis - Abdominal MRI: Acute pancreatitis weithout fluid collection, pancreatic necrosis, or venous thrombosis Plan: - Advance diet as tolerated - IV hydration 200ml/hr - Pain management (2) Breast cancer Current Visit: Yes Status: Chronic Assessment and Plan: Hx of breast cancer - Continue Tamoxifen (3) Nausea & vomiting Current Visit: Yes Status: Acute Assessment and Plan: Likely secondary to Pancreatitis Plan: - Protonix - Zofran - Clear liquid diet DVT Prophylaxis: Sub Q heparin - Time Spent with Patient Total time spent is greater than 50% in coordination of care (as documented) at patient's floor/unit and/or counseling patient: Internal Medicine: Result - Labs CBC & Chem 7: 05/13/19 03:15 05/13/19 03:15 Labs: Short CBC 05/12/19 05/13/19 Range/Units 19:18 03:15 WBC 13.4 H 13.9 H (4.3-11.1) K/mcL Hgb 13.0 12.0 (11.5-15.4) g/dL Hct 38.6 37.3 (35.3-44.9) % Plt Count 259 233 (140-400) K/mcL Neutrophils # 12.0 H 12.2 H (1.6-8.9) K/mcL BMP 05/12/19 05/13/19 19:18 03:15 Sodium 137 137 Potassium 3.5 4.0 Chloride 104 107 Carbon Dioxide 23 23 BUN 12 11 Creatinine 0.87 0.80 Glucose 127 H 117 H Calcium 9.4 8.5 L Liver Function 05/12/19 05/13/19 05/13/19 Range/Units 19:18 03:15 03:15 Total Bilirubin 0.7 0.6 0.6 (0.3-1.0) mg/dL Direct Bilirubin 0.1 0.2 (0.0-0.2) mg/dL AST 13 11 L 11 L (13-39) Units/L ALT 14 12 12 (7-52) Units/L Alkaline Phosphatase 57 53 53 (34-104) Units/L Albumin 4.1 3.8 3.9 (3.5-5.7) g/dL Urine 05/12/19 Range/Units 19:38 Urine Color Yellow (Yellow) Urine Clarity Hazy A (Clear) Urine pH 8.5 H (5.0-8.0) pH Units Ur Specific [place] 1.024 (1.010-1.025) Urine Protein Trace (Neg-Trace) mg/dL Urine Glucose (UA) Normal (Normal) mg/dL - ABG Interpretation ABG results: PT/INR, D-dimer PT 13.5 Seconds (9.4-12.1) H 05/13/19 03:15 - Impressions Impressions Abdomen/Pelvis CT 05/12/19 19:21 IMPRESSION: 1. CT findings suggestive of acute pancreatitis. Correlate with lipase. Area of low-density within the pancreatic head may represent focal edema. Evaluation is limited without IV contrast. Underlying mass is considered less likely. No secondary signs of malignancy are identified including atrophy or ductal dilatation. Contrast-enhanced pancreatic protocol CT is recommended after the patient's acute symptoms have resolved for better assessment. 2. Status post cholecystectomy. No intra or extrahepatic biliary dilatation. No radiodense choledocholithiasis. 3. Moderate diverticulosis. D/ / 05/12/2019 21:22:28 Diana Vega MD / isabel Interpreting Provider: Diana Vega MD Abdomen MRI 05/13/19 08:42 IMPRESSION: 1. Acute pancreatitis. No fluid collection, pancreatic necrosis, or venous thrombosis. 2. No biliary ductal dilatation or choledocholithiasis. 3. Bibasilar airspace disease with trace pleural effusions. D/ / Srikanth Boyce MD / Srikanth Boyce MD Interpreting Provider: Srikanth Boyce MD Consult Discharge Plan - Plan Referrals: Emiliana Carmona, COMIC ARTIST [Primary Care Provider] - (1) Pancreatitis Qualifiers: Chronicity: acute Pancreatitis type: idiopathic Acute pancreatitis complication: no infection or necrosis Qualified Code(s): K85.00 - Idiopathic acute pancreatitis without necrosis or infection (2) Breast cancer Qualifiers: Breast location: unspecified site of breast Estrogen receptor status: unspecified Patient sex: female Laterality: left Qualified Code(s): C50.912 - Malignant neoplasm of unspecified site of left female breast
--- NOTE | 2019-05-13 15:37 | Electrocardiograph Report ---
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
[2019-05-13] MEDS: 0.9 % Sodium Chloride 1,000 ML IV SCH ×3 (16:01→21:14)
[2019-05-13] MEDS: *HR* OxyCODONE/APAP 5/325 TABLET PO PRN (21:02)
[2019-05-14] MEDS: 0.9 % Sodium Chloride 1,000 ML IV SCH (02:25)
[2019-05-14] MEDS: Acetaminophen 325 MG TABLET PO PRN (02:41)
[2019-05-14 05:22] LABS: Basophils % 0.3 %; Eosinophils % 0.3 %; Hematocrit 30.6 % (35.3-44.9); Hemoglobin 9.9 g/dL (11.5-15.4); Immature Granulocytes % 0.5 % (0-4); Lymphocytes % 9.6 %; Mean Corpuscular HGB Conc 32.4 g/dL (31.6-35.5); Mean Corpuscular Volume 92.7 fL (83.0-100.0); Mean Platelet Volume 9.1 fL (9.4-12.4); Monocytes # 0.6 K/mcL (0.0-1.3); Monocytes % 5.8 %; Platelet Count 199 K/mcL (140-400); Red Cell Distribution Width 12.6 % (11.5-14.5); Segmented Neutrophils % 83.5 %; White Blood Count 10.8 K/mcL (4.3-11.1)
[2019-05-14 05:45] LABS: Alanine Aminotransferase 12 Units/L (7-52); Albumin 3.1 g/dL (3.5-5.7); Albumin/Globulin Ratio 1.2 (1.1-2.2); Alkaline Phosphatase 51 Units/L (34-104); Aspartate Amino Transferase 12 Units/L (13-39); BUN/Creatinine Ratio 10 (6-26); Bilirubin,Direct 0.2 mg/dL (0.0-0.2); Bilirubin,Indirect 0.4 mg/dL (0.0-1.2); Bilirubin,Total 0.6 mg/dL (0.3-1.0); Blood Urea Nitrogen 7 mg/dL (6-20); Carbon Dioxide 20 mEq/L (23-29); Chloride 108 mEq/L (98-107); Globulin 2.5 g/dL (2.4-3.5); Glucose 97 mg/dL (70-105); Magnesium 1.9 mg/dL (1.6-2.6); Osmolality,Calculated 286 (280-300); Potassium 3.6 mEq/L (3.5-5.1); Sodium 139 mEq/L (136-145); Total Protein 5.6 g/dL (6.4-8.9); eGFR For African Americans > 60 (> 60); eGFR For Non-African Americans > 60 (> 60)
[2019-05-14] MEDS: Pantoprazole 40 MG VIAL IVP SCH ×2 (06:14→17:42)
[2019-05-14] MEDS: *HR* Heparin 5,000 UNIT/ML VIAL SQ SCH ×2 (06:14→17:42)
[2019-05-14] MEDS: *HR* OxyCODONE/APAP 5/325 TABLET PO PRN ×3 (06:52→20:46)
--- NOTE | 2019-05-14 07:39 | Internal Med Progress Note ---
Hospitalist Progress Note - Encounter Date of Encounter: 05/14/19 Time of Encounter: 07:38 - Subjective Interval History: Patient seen and examined. No overnight events. Afebrile. Tolerating liquid diet as of last night. Denies nausea or vomiting. She reports abdominal pain somewhat improved. Denies headache, shortness of breath, chest pain, consti pation, diarrhea, changes in urination. - Exam Vitals: Temp Pulse Resp BP Pulse Ox 98.1 F 78 18 104/68 96 05/14/19 07:28 05/14/19 07:28 05/14/19 07:28 05/14/19 07:28 05/14/19 07:28 Exam: Gen: Vitals noted. No acute distress. Eyes: anicteric sclerae, moist conjunctivae, Pupils equal, round, and reactive to light HENT: Atraumatic, oropharynx clear with moist mucous membranes and no mucosal ulcerations Neck: Trachea midline, supple, no thyromegaly or lymphadenopathy Cardiac: RRR, no murmur, +S1/S2 Pulmonary: CTA bilaterally, no wheezes, rales or rhonchi, equal chest expansion Abdomen: soft, epigastric tenderness to palpation palpation, no rigidity, no guarding. No masses or hepatosplenomegaly MSK: ROM intact, no joint swelling noted Extremities: no BLE edema, non-tender calf, no cyanosis or clubbing Skin: Normal temperature, turgor and texture; no rash, ulcers or subcutaneous nodules Neuro: moves all extremities, no focal deficits. Psych: Appropriate mood and behavior. A&Ox3 - Assessment and Plan (1) Pancreatitis Current Visit: Yes Status: Acute Assessment and Plan: Presentation of abdominal pain with nausea, and vomiting - Began 3 days before admission - Cholecystectomy several years ago - No family history of hyperlipidemia/hypertriglyceridemia - Does not drink alcohol - Leukocytosis of 13.9 on admission - Lipase 123 on admission, then 53 - CT ab/pel: Acute pancreatitis - Abdominal MRI: Acute pancreatitis weithout fluid collection, pancreatic necrosis, or venous thrombosis Plan: - Advance diet as tolerated - IV hydration 100 ml/hr LR's - Pain management (2) Nausea & vomiting Current Visit: Yes Status: Acute Assessment and Plan: Likely secondary to Pancreatitis Plan: - Protonix - Zofran - Clear liquid diet (3) Breast cancer Current Visit: No Status: Chronic Assessment and Plan: Hx of breast cancer - Continue Tamoxifen DVT Prophylaxis: Sub Q heparin - Time Spent with Patient Total time spent is greater than 50% in coordination of care (as documented) at patient's floor/unit and/or counseling patient: Internal Medicine: Result - Labs CBC & Chem 7: 05/14/19 04:46 05/14/19 04:46 Labs: Short CBC 05/14/19 Range/Units 04:46 WBC 10.8 (4.3-11.1) K/mcL Hgb 9.9 L D (11.5-15.4) g/dL Hct 30.6 L (35.3-44.9) % Plt Count 199 (140-400) K/mcL Neutrophils # 9.0 H (1.6-8.9) K/mcL BMP 05/14/19 04:46 Sodium 139 Potassium 3.6 Chloride 108 H Carbon Dioxide 20 L BUN 7 Creatinine 0.71 Glucose 97 Calcium 8.0 L Liver Function 05/14/19 Range/Units 04:46 Total Bilirubin 0.6 (0.3-1.0) mg/dL Direct Bilirubin 0.2 (0.0-0.2) mg/dL AST 12 L (13-39) Units/L ALT 12 (7-52) Units/L Alkaline Phosphatase 51 (34-104) Units/L Albumin 3.1 L (3.5-5.7) g/dL - ABG Interpretation ABG results: PT/INR, D-dimer PT 13.5 Seconds (9.4-12.1) H 05/13/19 03:15 - Impressions Impressions Abdomen MRI 05/13/19 08:42 IMPRESSION: 1. Acute pancreatitis. No fluid collection, pancreatic necrosis, or venous thrombosis. 2. No biliary ductal dilatation or choledocholithiasis. 3. Bibasilar airspace disease with trace pleural effusions. D/ / Srikanth Boyce MD / Srikanth Boyce MD Interpreting Provider: Srikanth Boyce MD Consult Discharge Plan - Plan Referrals: Emiliana Carmona, DUCT MAKER [Primary Care Provider] - (1) Pancreatitis Qualifiers: Chronicity: acute Pancreatitis type: idiopathic Acute pancreatitis complication: no infection or necrosis Qualified Code(s): K85.00 - Idiopathic acute pancreatitis without necrosis or infection (3) Breast cancer Qualifiers: Breast location: unspecified site of breast Estrogen receptor status: unspecified Patient sex: female Laterality: left Qualified Code(s): C50.912 - Malignant neoplasm of unspecified site of left female breast
[2019-05-14] MEDS ORDERED: Ringers Solution, Lactated 1,000 ML IVC SCH (11:00)
[2019-05-14] MEDS: Ringers Solution, Lactated 1,000 ML IVC SCH (20:47)
[2019-05-15] MEDS: *HR* OxyCODONE/APAP 5/325 TABLET PO PRN (02:35)
[2019-05-15] MEDS: Ringers Solution, Lactated 1,000 ML IVC SCH ×4 (02:36→17:26)
[2019-05-15] MEDS: *HR* Heparin 5,000 UNIT/ML VIAL SQ SCH ×2 (06:05→17:26)
[2019-05-15] MEDS: Pantoprazole 40 MG VIAL IVP SCH ×2 (06:05→17:26)
--- NOTE | 2019-05-15 08:31 | Internal Med Progress Note ---
Hospitalist Progress Note - Encounter Date of Encounter: 05/15/19 Time of Encounter: 08:31 - Subjective Interval History: Patient seen and examined. Pain is not improved less severe today. Patient is attempting to tolerate clear liquid diet. Some abdominal discomfort and bloating remain. Reports having a mild headache and some epigastric discomfort. Denies fever, chills, chest pain, shortness of breath, palpitations, constipation, diarrhea, change in urination. - Exam Vitals: Temp Pulse Resp BP Pulse Ox 98.2 F 67 18 116/77 96 05/15/19 06:44 05/15/19 06:44 05/15/19 06:44 05/15/19 06:44 05/15/19 06:44 Exam: Gen: Vitals noted. No acute distress. Eyes: anicteric sclerae, moist conjunctivae, Pupils equal, round, and reactive to light HENT: Atraumatic, oropharynx clear with moist mucous membranes and no mucosal ulcerations Neck: Trachea midline, supple, no thyromegaly or lymphadenopathy Cardiac: RRR, no murmur, +S1/S2 Pulmonary: CTA bilaterally, no wheezes, rales or rhonchi, equal chest expansion Abdomen: soft, epigastric tenderness to deep palpation, no rigidity, no guarding. No masses or hepatosplenomegaly MSK: ROM intact, no joint swelling noted Extremities: no BLE edema, non-tender calf, no cyanosis or clubbing Skin: Normal temperature, turgor and texture; no rash, ulcers or subcutaneous nodules Neuro: moves all extremities, no focal deficits. Psych: Appropriate mood and behavior. A&Ox3 - Assessment and Plan (1) Pancreatitis Current Visit: Yes Status: Acute Assessment and Plan: Presentation of abdominal pain with nausea, and vomiting - Began 3 days before admission - Cholecystectomy several years ago - No family history of hyperlipidemia/hypertriglyceridemia - Does not drink alcohol - Leukocytosis of 13.9 on admission - Lipase 123 on admission, then 53 - CT ab/pel: Acute pancreatitis - Abdominal MRI: Acute pancreatitis weithout fluid collection, pancreatic necrosis, or venous thrombosis Plan: - Advance clear liquid diet as tolerated - IV hydration 150 ml/hr LR's - Pain management (2) Nausea & vomiting Current Visit: Yes Status: Acute Assessment and Plan: Likely secondary to Pancreatitis Plan: - Protonix - Zofran - Clear liquid diet (3) Breast cancer Current Visit: No Status: Chronic Assessment and Plan: Hx of breast cancer - Continue Tamoxifen DVT Prophylaxis: Sub Q heparin - Summary of Assessment and Plan Summary of Assessment and Plan: 43-year-old female with past medical history of cholecystectomy and breast cancer. Presented with nausea, vomiting, abdominal pain, fever. Treating acute pancreatitis. Pain improving, vomiting resolved, beginning to tolerate liquid diet. - Time Spent with Patient Total time spent is greater than 50% in coordination of care (as documented) at patient's floor/unit and/or counseling patient: Internal Medicine: Result - Labs CBC & Chem 7: 05/14/19 04:46 05/14/19 04:46 - ABG Interpretation ABG results: PT/INR, D-dimer PT 13.5 Seconds (9.4-12.1) H 05/13/19 03:15 Consult Discharge Plan - Plan Referrals: Emiliana Carmona, SUPPORT ARCHITECT [Primary Care Provider] - (1) Pancreatitis Qualifiers: Chronicity: acute Pancreatitis type: idiopathic Acute pancreatitis complication: no infection or necrosis Qualified Code(s): K85.00 - Idiopathic acute pancreatitis without necrosis or infection (3) Breast cancer Qualifiers: Breast location: unspecified site of breast Estrogen receptor status: unspecified Patient sex: female Laterality: left Qualified Code(s): C50.912 - Malignant neoplasm of unspecified site of left female breast
[2019-05-15 10:43] LABS: Immunoglobulin G Subclass 1 264 mg/dL (240-1118); Immunoglobulin G Subclass 2 368 mg/dL (124-549); Immunoglobulin G Subclass 3 67 mg/dL (21-134); Immunoglobulin G Subclass 4 25 mg/dL (1-123)
[2019-05-15 10:54] LABS: ANA IgG by ELISA NONE DETECTED (None Detected)
[2019-05-15] MEDS ORDERED: Acetaminophen/Aspirin/Caffeine TABLET PO PRN (15:07)
[2019-05-15] MEDS: Acetaminophen 325 MG TABLET PO PRN (19:24)
[2019-05-16] MEDS: Ringers Solution, Lactated 1,000 ML IVC SCH (00:18)
[2019-05-16] MEDS: *HR* Heparin 5,000 UNIT/ML VIAL SQ SCH ×2 (05:16→17:33)
[2019-05-16] MEDS: Pantoprazole 40 MG VIAL IVP SCH (05:16)
[2019-05-16 07:07] LABS: Basophils % 0.7 %; Eosinophils # 0.1 K/mcL (0.0-0.6); Eosinophils % 1.4 %; Hematocrit 28.7 % (35.3-44.9); Hemoglobin 9.6 g/dL (11.5-15.4); Immature Granulocytes % 0.5 % (0-4); Lymphocytes # 1.2 K/mcL (0.6-4.6); Mean Corpuscular HGB Conc 33.4 g/dL (31.6-35.5); Mean Corpuscular Hemoglobin 30.6 pg (28.0-33.3); Mean Corpuscular Volume 91.4 fL (83.0-100.0); Mean Platelet Volume 9.3 fL (9.4-12.4); Monocytes # 0.4 K/mcL (0.0-1.3); Monocytes % 6.2 %; Neutrophils # 4.1 K/mcL (1.6-8.9); Platelet Count 219 K/mcL (140-400); Red Blood Count 3.14 M/mcL (3.82-4.97); Red Cell Distribution Width 12.5 % (11.5-14.5); Segmented Neutrophils % 71.2 %; White Blood Count 5.8 K/mcL (4.3-11.1)
[2019-05-16 07:27] LABS: BUN/Creatinine Ratio 12 (6-26); Blood Urea Nitrogen 8 mg/dL (6-20); Calcium 8.6 mg/dL (8.6-10.3); Carbon Dioxide 20 mEq/L (23-29); Chloride 106 mEq/L (98-107); Glucose 72 mg/dL (70-105); Osmolality,Calculated 285 (280-300); Potassium 3.5 mEq/L (3.5-5.1); Sodium 139 mEq/L (136-145); eGFR For African Americans > 60 (> 60); eGFR For Non-African Americans > 60 (> 60)
--- NOTE | 2019-05-16 11:28 | Internal Med Progress Note ---
Hospitalist Progress Note - Encounter Date of Encounter: 05/16/19 Time of Encounter: 11:25 - Subjective Interval History: Ms. Bach was seen at bedside this morning. She was resting comfortably and reported that her symptoms have significantly improved. She also reported she is now tolerating small amount of clear liquid. She reports she had a bowel movement this morning and nausea is also improving. Denies shortness of breath, chest pain, fever, chills. - Exam Vitals: Temp Pulse Resp BP Pulse Ox 98.3 F 53 16 129/79 97 05/16/19 11:04 05/16/19 11:04 05/16/19 11:04 05/16/19 11:04 05/16/19 11:04 Exam: Gen: Vitals noted. No acute distress. Appears comfortable. Eyes: anicteric sclerae, moist conjunctivae; no lid-lag HENT: Atraumatic; oropharynx clear with moist mucous membranes Neck: Trachea midline; supple, no thyromegaly or lymphadenopathy Cardiac: RRR, no murmur, +S1/S2. No JVD noted. Pulmonary: CTA bilaterally, no wheezes, rales or rhonchi, equal chest expansion Abdomen: soft, mild diffuse tenderness with deep palpation, no guarding. No masses or hepatosplenomegaly MSK: ROM intact, trace edema bilateral lower extremity, nontender calf Skin: Normal temperature, turgor; no rash, ulcers or subcutaneous nodules Neuro: moves all extremities, no focal deficits. Psych: Appropriate mood and behavior. A&Ox3 - Assessment and Plan (1) Pancreatitis Current Visit: Yes Status: Acute Assessment and Plan: Presentation of abdominal pain with nausea, and vomiting - Tolerating small amount of clear liquid today, had 1 bowel movements morning - Began 3 days prior to admission - Cholecystectomy several years ago - No family history of hyperlipidemia/hypertriglyceridemia - Does not drink alcohol - Leukocytosis of 13.4 on admission this morning at 5.8 - Lipase 123 on admission, then 53 - CT ab/pel: Acute pancreatitis - Abdominal MRI: Acute pancreatitis without fluid collection, pancreatic necrosis, or venous thrombosis Plan: - Continue clear liquid diet as tolerated - Stopped IV hydration - Stopped IV Protonix - Pain management (2) Nausea & vomiting Current Visit: Yes Status: Acute Assessment and Plan: Likely secondary to pancreatitis Improving this morning tolerating small amount of clear liquid Plan: -Continue clear liquid diet -Continue Zofran as needed (3) Breast cancer Current Visit: No Status: Chronic Assessment and Plan: Hx of breast cancer - Continue home Tamoxifen DVT Prophylaxis: Sub Q heparin - Time Spent with Patient Total time spent is greater than 50% in coordination of care (as documented) at patient's floor/unit and/or counseling patient: Internal Medicine: Result - Labs CBC & Chem 7: 05/16/19 06:29 05/16/19 06:29 Labs: Short CBC 05/16/19 Range/Units 06:29 WBC 5.8 (4.3-11.1) K/mcL Hgb 9.6 L (11.5-15.4) g/dL Hct 28.7 L (35.3-44.9) % Plt Count 219 (140-400) K/mcL Neutrophils # 4.1 (1.6-8.9) K/mcL BMP 05/16/19 06:29 Sodium 139 Potassium 3.5 Chloride 106 Carbon Dioxide 20 L BUN 8 Creatinine 0.68 Glucose 72 Calcium 8.6 - ABG Interpretation ABG results: PT/INR, D-dimer PT 13.5 Seconds (9.4-12.1) H 05/13/19 03:15 Consult Discharge Plan - Plan Referrals: Emiliana Carmona, DIE STAMPER [Primary Care Provider] - (1) Pancreatitis Qualifiers: Chronicity: acute Pancreatitis type: idiopathic Acute pancreatitis complication: no infection or necrosis Qualified Code(s): K85.00 - Idiopathic acute pancreatitis without necrosis or infection (3) Breast cancer Qualifiers: Breast location: unspecified site of breast Estrogen receptor status: unspecified Patient sex: female Laterality: left Qualified Code(s): C50.912 - Malignant neoplasm of unspecified site of left female breast
[2019-05-16 14:29] LABS: Smooth Muscle Ab Titer IgG <1:20 (<1:20)
[2019-05-17] MEDS: *HR* Heparin 5,000 UNIT/ML VIAL SQ SCH (05:32)
--- NOTE | 2019-05-17 10:11 | Discharge Summary ---
- NOTES TO OUTPATIENT PROVIDER Notes to Outpatient Provider: Ms. Bach presented to the hospital due to nausea, abdominal pain and emsis. CT showed acute pancreatitis, unknown etiology. Date of Encounter: 05/17/19 Time of Encounter: 10:08 - Discharge Diagnosis (1) Pancreatitis Priority: Primary Status: Resolved Qualifiers: Chronicity: acute Pancreatitis type: idiopathic Acute pancreatitis complication: no infection or necrosis Qualified Code(s): K85.00 - Idiopathic acute pancreatitis without necrosis or infection (2) Nausea & vomiting Priority: Secondary Status: Resolved Qualifiers: Vomiting type: unspecified Vomiting Intractability: non-intractable Qualified Code(s): R11.2 - Nausea with vomiting, unspecified (3) Breast cancer Priority: Secondary Status: Chronic Qualifiers: Breast location: unspecified site of breast Estrogen receptor status: unspecified Patient sex: female Laterality: left Qualified Code(s): C50. 912 - Malignant neoplasm of unspecified site of left female breast Hospital course: Ms. Bach is a 43 year old female who presented to the ED on complaining of nausea, emesis and abdominal pain. She underwent CT abdomen and pelvis which showed acute pancreatitis. Additionally had MRI of her abdomen which also showed acute pancreatitis. Received IV hydration, antiemetics and pain medication during the first few days. Yesterday started tolerating clear liquids and today tolerating diet without any abdominal pain or nausea. Yesterday and today has had regular bowel movement. Unknown etiology with pancreatitis. Recommend holding home multivitamin this time. Initially recommend slowly increasing diet as tolerated. Discharge discussed with: patient - Time Spent with Patient Total time spent providing and/or coordinating discharge services: - Discharge Medications Prescriptions: Continued Tamoxifen Citrate 20 mg PO DAILY Discontinued Whole Food Multivitamin 1 tab PO DAILY Home Medications: Tamoxifen Citrate 20 mg PO DAILY 05/13/19 [History] Allergies/Adverse Reactions: Allergy/AdvReac Type Severity Reaction Status Date / Time phenazopyridine Allergy See Verified 05/13/19 16:10 [From Pyridium] Comments sulfamethoxazole Allergy See Verified 05/13/19 16:10 [From Bactrim] Comments trimethoprim [From Bactrim] Allergy See Verified 05/13/19 16:10 Comments Date of admission: 05/13/19 18:32 Primary care physician: Emiliana Carmona CNP Consults: 05/12/19 23:47 Consult to Gastroenterology [CONS] Routine Consulting Provider: Kristin Otero Reason for Consult: pancreatitis Call Completed: No Discharging clinician: Martha Miles Anticipated date of discharge: 05/17/19 - Constitutional Vitals: Temp Pulse Resp BP Pulse Ox 98.6 F 66 17 122/81 92 05/17/19 06:56 05/17/19 06:56 05/17/19 06:56 05/17/19 06:56 05/17/19 06:56 General appearance: Present: cooperative, mild distress, A&O X 3, pleasant, answ ers questions appropriately Exam: Gen: Vitals noted. No acute distress. Appears comfortable. Eyes: anicteric sclerae, moist conjunctivae; no lid-lag HENT: Atraumatic; oropharynx clear with moist mucous membranes Neck: Trachea midline; supple, no thyromegaly or lymphadenopathy Cardiac: RRR, no murmur, +S1/S2. No JVD noted. Pulmonary: CTA bilaterally, no wheezes, rales or rhonchi, equal chest expansion Abdomen: soft, no tenderness, no guarding. No masses or hepatosplenomegaly MSK: ROM intact, trace edema bilateral lower extremity, nontender calf Skin: Normal temperature, turgor; no rash, ulcers or subcutaneous nodules Neuro: moves all extremities, no focal deficits. Psych: Appropriate mood and behavior. A&Ox3 - Patient Status Disposition: Home, Self-Care Condition: Good Overall status at discharge: patient is progressing back to baseline - Discharge Instructions Follow Up With: Emiliana Carmona, OTR FLATBED DRIVER [Primary Care Provider] - - Diet and Activity Activity: increase activity as tolerated Diet: other (low fat diet initially, increase as tolerated)
[2019-05-17 11:25] VITALS: BP 124/84
== END 2019-05-17 12:36 | disposition home or self-care (01) | DRG 440 ==
LOC: 3ANU 18:20 → EMEROOARM 18:20 → SUATTDRO 22:34 → 3ANU 23:07
PROVIDERS: ADMIT Internal Medicine Nephrology; ATTEND Internal Medicine

== ENCOUNTER 2021-04-17 17:36 | Observation (INO) ==
[2021-04-17 19:32] LABS: Basophils # 0.1 K/mcL (0.0-0.2); Basophils % 0.4 %; Eosinophils # 0.1 K/mcL (0.0-0.6); Eosinophils % 0.6 %; Hematocrit 39.2 % (35.3-44.9); Hemoglobin 12.9 g/dL (11.5-15.4); Immature Granulocytes % 0.5 % (0-4); Lymphocytes # 1.8 K/mcL (0.6-4.6); Lymphocytes % 12.2 %; Mean Corpuscular HGB Conc 32.9 g/dL (31.6-35.5); Mean Corpuscular Hemoglobin 30.9 pg (28.0-33.3); Mean Platelet Volume 8.8 fL (9.4-12.4); Monocytes # 0.8 K/mcL (0.0-1.3); Monocytes % 5.3 %; Neutrophils # 11.7 K/mcL (1.6-8.9); Platelet Count 247 K/mcL (140-400); Red Blood Count 4.17 M/mcL (3.82-4.97); Red Cell Distribution Width 12.4 % (11.5-14.5); White Blood Count 14.4 K/mcL (4.3-11.1)
[2021-04-17 19:57] LABS: Bilirubin,Urine Negative (Negative); Blood,Urine Negative (Negative); Clarity,Urine Clear (Clear); Color,Urine Yellow (Yellow); Glucose,Urine (UA) Normal (Normal); Ketones,Urine 60 mg/dL (Negative); Leukocyte Esterase,Urine Trace (Negative); Mucus,Urine Moderate per lpf (None-Few); Nitrite,Urine Negative (Negative); Protein,Urine 30 mg/dL (Neg-Trace); Specific Gravity,Urine > 1.030 (1.010-1.025); Squamous Epithelial Cell,Urine Few per hpf (None-Few); Urobilinogen,Urine Normal (Normal); WBC,Urine 0-3 per hpf (0-3)
[2021-04-17 20:02] LABS: Alanine Aminotransferase 18 Units/L (7-52); Albumin 4.3 g/dL (3.5-5.7); Albumin/Globulin Ratio 1.6 (1.1-2.2); Alkaline Phosphatase 59 Units/L (34-104); Aspartate Amino Transferase 15 Units/L (13-39); BUN/Creatinine Ratio 39 (6-26); Bilirubin,Total 0.7 mg/dL (0.3-1.0); Blood Urea Nitrogen 27 mg/dL (6-20); Calcium 9.1 mg/dL (8.6-10.3); Carbon Dioxide 24 mEq/L (23-29); Chloride 105 mEq/L (98-107); Globulin 2.7 g/dL (2.4-3.5); Glucose 91 mg/dL (70-105); Lipase 194 Units/L (11-82); Osmolality,Calculated 291 (280-300); Potassium 3.9 mEq/L (3.5-5.1); Sodium 138 mEq/L (136-145); eGFR For African Americans > 60 (> 60); eGFR For Non-African Americans > 60 (> 60)
[2021-04-17] MEDS ORDERED: 0.9 % Sodium Chloride 1,000 ML IVC ONE (20:03)
[2021-04-17] MEDS ORDERED: *HR* HYDROmorphone 2 MG/ML SYRINGE IVP ONE (20:03)
[2021-04-17] MEDS ORDERED: Ondansetron 4 MG/2 ML VIAL IVP ONE (20:04)
[2021-04-17] MEDS ORDERED: Isovue-370 500 ML BOTTLE IVP ONE (20:13)
[2021-04-17] MEDS ORDERED: Ondansetron 4 MG/2 ML VIAL IVP PRN (23:32)
[2021-04-17] MEDS ORDERED: Acetaminophen 325 MG TABLET PO PRN (23:32)
[2021-04-17] MEDS ORDERED: Naloxone 0.4 MG/ML INJ IVP PRN (23:32)
[2021-04-17] MEDS ORDERED: *HR* HYDROmorphone (PF) 1 MG/ML SYRINGE IVP PRN (23:35)
[2021-04-17] MEDS ORDERED: *HR* OxyCODONE Immed Rel 5 MG TABLET PO PRN (23:36)
[2021-04-18 00:40] LABS: Hematocrit 35.7 % (35.3-44.9); Hemoglobin 11.7 g/dL (11.5-15.4); Mean Corpuscular HGB Conc 32.8 g/dL (31.6-35.5); Mean Corpuscular Hemoglobin 30.8 pg (28.0-33.3); Mean Corpuscular Volume 93.9 fL (83.0-100.0); Mean Platelet Volume 8.6 fL (9.4-12.4); Platelet Count 218 K/mcL (140-400); Red Cell Distribution Width 12.5 % (11.5-14.5); White Blood Count 13.6 K/mcL (4.3-11.1)
[2021-04-18] MEDS ORDERED: Ringers Solution, Lactated 1,000 ML IVC ONE (00:55)
[2021-04-18 01:00] LABS: BUN/Creatinine Ratio 34 (6-26); Blood Urea Nitrogen 22 mg/dL (6-20); Calcium 8.3 mg/dL (8.6-10.3); Carbon Dioxide 21 mEq/L (23-29); Chloride 106 mEq/L (98-107); Chol/HDL Ratio 2.9 (0-4.9); Cholesterol 140 mg/dL (< 200); Glucose 99 mg/dL (70-105); HDL Cholesterol 48 mg/dL (40-59); LDL Cholesterol,Calculated 74 mg/dL (< 100); Osmolality,Calculated 289 (280-300); Potassium 3.9 mEq/L (3.5-5.1); Sodium 138 mEq/L (136-145); Triglycerides 89 mg/dL (< 150); eGFR For African Americans > 60 (> 60); eGFR For Non-African Americans > 60 (> 60)
[2021-04-18] MEDS ORDERED: Ibuprofen 400 MG TABLET PO PRN (01:06)
[2021-04-18] MEDS: *HR* Enoxaparin 40 MG/0.4 ML SYRINGE SQ SCH (05:24)
[2021-04-18] MEDS ORDERED: Acetaminophen 325 MG TABLET PO PRN (10:09)
[2021-04-18] MEDS ORDERED: *HR* OxyCODONE Immed Rel 5 MG TABLET PO PRN (10:10)
[2021-04-18] MEDS ORDERED: 0.9 % Sodium Chloride 1,000 ML IVC SCH (10:30)
[2021-04-18] MEDS: 0.9 % Sodium Chloride 1,000 ML IVC SCH ×2 (11:30→21:02)
[2021-04-18] MEDS: *HR* OxyCODONE Immed Rel 5 MG TABLET PO PRN ×2 (17:30→23:38)
[2021-04-19 02:59] LABS: Basophils % 0.2 %; Eosinophils # 0.1 K/mcL (0.0-0.6); Eosinophils % 0.5 %; Hematocrit 32.8 % (35.3-44.9); Hemoglobin 10.5 g/dL (11.5-15.4); Immature Granulocytes % 0.3 % (0-4); Lymphocytes # 1.5 K/mcL (0.6-4.6); Lymphocytes % 15.4 %; Mean Corpuscular Hemoglobin 30.3 pg (28.0-33.3); Mean Corpuscular Volume 94.8 fL (83.0-100.0); Mean Platelet Volume 8.9 fL (9.4-12.4); Monocytes # 0.5 K/mcL (0.0-1.3); Monocytes % 5.6 %; Neutrophils # 7.6 K/mcL (1.6-8.9); Platelet Count 192 K/mcL (140-400); Red Blood Count 3.46 M/mcL (3.82-4.97); Red Cell Distribution Width 12.4 % (11.5-14.5); White Blood Count 9.7 K/mcL (4.3-11.1)
[2021-04-19 03:11] LABS: BUN/Creatinine Ratio 17 (6-26); Blood Urea Nitrogen 11 mg/dL (6-20); Calcium 8.2 mg/dL (8.6-10.3); Carbon Dioxide 21 mEq/L (23-29); Chloride 105 mEq/L (98-107); Glucose 89 mg/dL (70-105); Osmolality,Calculated 291 (280-300); Potassium 3.8 mEq/L (3.5-5.1); Sodium 141 mEq/L (136-145); eGFR For African Americans > 60 (> 60); eGFR For Non-African Americans > 60 (> 60)
[2021-04-19] MEDS: *HR* Enoxaparin 40 MG/0.4 ML SYRINGE SQ SCH (05:17)
[2021-04-19] MEDS: 0.9 % Sodium Chloride 1,000 ML IVC SCH (08:27)
[2021-04-19 12:49] VITALS: BP 120/75
== END 2021-04-19 15:33 | disposition home or self-care (01) ==
LOC: 2ANU 17:36 → EMEROOARM 17:36 → SUATTDRO 23:11 → 2ANU 04-18 00:06
PROVIDERS: ADMIT Family Medicine; ATTEND Internal Medicine